=== PATIENT | female | born 1990 | race Caucasian/White ===

== ENCOUNTER 2017-03-10 21:18 | Emergency (ER) | payer OTHER, BC ==
[2017-03-10 21:28] VITALS: RESP 16
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
[2017-03-10 23:52] VITALS: BP 134/83; PULSE 84; TEMP 98.6; O2SAT 97
== END 2017-03-10 23:52 | disposition home or self-care (01) ==
LOC: EDUNIT#
DX: S16.1XXA Strain of muscle, fascia and tendon at neck level, initial encounter (principal); T14.8 Other injury of unspecified body region; V03.90XA Pedestrian on foot injured in collision with car, pick-up truck or van, unspecified whether traffic or nontraffic accident, initial encounter; Y92.410 Unspecified street and highway as the place of occurrence of the external cause